=== PATIENT | male | born 1975 | race African-American/Black ===

== ENCOUNTER 2022-05-04 20:48 | Emergency (ER) | payer OTHER ==
[~2022-05-04] VITALS: Ht 190.5 cm; Wt 86.2 kg
[2022-05-04 21:00] VITALS: BP 127/90
[2022-05-04] MEDS ORDERED: DOXY100T2 PO (21:21)
[2022-05-04] MEDS ORDERED: CEFTRIAXONE 500 MG VIAL IM ONE (21:30)
[2022-05-04] MEDS ORDERED: DOXYCYCLINE HYCLATE (100 MG) 100 MG TABLET PO ONE (21:30)
--- NOTE | 2022-05-04 21:46 | NUR ---
PT SEEN BY [employer]
[2022-05-04] MEDS ORDERED: DOXYCYCLINE HYCLATE (100 MG) 100 MG TABLET ONE (21:57)
[2022-05-04] MEDS ORDERED: CEFTRIAXONE 500 MG VIAL ONE (21:57)
[2022-05-04] MEDS ORDERED: LIDOCAINE /MPF 1% VIAL 5 ML VIAL ONE (21:57)
--- NOTE | 2022-05-04 22:05 | NUR ---
Patient discharged to home in stable condition. Written and verbal after care instructions given. Patient verbalizes understanding of instruction.
== END 2022-05-04 22:05 | disposition home or self-care (01) ==
LOC: ER 20:50
DX: F17.200 Nicotine dependence, unspecified, uncomplicated (principal); N34.2 Other urethritis
CPT/HCPCS: 99283; 96372; 87491; 87591; J0696; J3490; 87086-TC